=== PATIENT | male | born 1945 | race Caucasian/White ===

== ENCOUNTER 2017-08-27 22:23 | Observation (INO) | payer MEDICARE, OTHER ==
[~2017-08-27] VITALS: Ht 172.7 cm; Wt 84.7 kg
[2017-08-27 22:33] VITALS: BP 170/77; PULSE 71; RESP 16; TEMP 97.7; O2SAT 94
[2017-08-27] MEDS ORDERED: ATOR40TA16 PO (23:23)
[2017-08-27] MEDS ORDERED: FEXO180T PO (23:23)
[2017-08-27] MEDS ORDERED: GLUC15009 PO (23:23)
[2017-08-27] MEDS ORDERED: LUTE20CA PO (23:23)
[2017-08-27] MEDS ORDERED: TAMS0.4C4 PO (23:23)
[2017-08-27] MEDS ORDERED: LISI20TA3 PO (23:23)
[2017-08-27 23:24] VITALS: BP 149/85; PULSE 72; RESP 18; O2SAT 97
[2017-08-28] VITALS (8 sets, daily range): BP systolic 124–164; BP diastolic 68–85; PULSE 65–86; RESP 16–20; TEMP 95.7–97; O2SAT 94–97
--- NOTE | 2017-08-28 00:08 | PD ---
HPI Chief Complaint: Cardiac Complaint Time Seen by Provider: 00:04 Travel History International Travel<30 days: No Contact w/Intl Traveler<30days: No Traveled to known affect area: No History of Present Illness HPI 72-year-old male presents to the emergency department for complaint of intermittent chest pain over the past 2-3 days. Patient states chest discomfort is tightness 2/10 in intensity and last a few minutes in duration. Patient has noted some intermittent radiation towards the neck. Currently pain is 0/10 in intensity. Patient states that because he experienced the discomfort again this evening around 10:30 decided to come to the emergency room for evaluation. Patient has history of hypertension and dyslipidemia for which she is taking medications on a regular basis. Patient does not have diabetes tobacco use or premature onset of heart disease in his family. Patient is unable to identify exacerbating or alleviating factors. Patient has not had a stress test. Patient sees his primary care provider for management of his blood pressure and dyslipidemia every 6 months and has been told that these are well controlled. Patient denies any recent long distance travel protracted bedrest her surgical procedure. Patient does not describe any pleuritic chest pain shortness of breath or hemoptysis. Patient denies any associated shortness of breath sweats nausea vomiting referred [facility] Past Medical History Narrative Medical Hypertension dyslipidemia tonsillectomy appendectomy and back surgery; no tobacco use; nursing notes reviewed High Cholesterol: Yes Diminished Hearing: No Herniated Disk: Yes Hypertension: Yes Tetanus Vaccination: Unknown Influenza Vaccination: Yes ?: Not Past Surgical History Appendectomy: Yes Tonsillectomy: Yes Social History Alcohol Use: Yes (3-4 beers daily) Tobacco Use: No Substance Use: No Allergies-Medications (Allergen,Severity, Reaction): Coded Allergies: No Known Allergies (Verified Allergy, Unknown, 08/27/17) Reported Meds & Prescriptions Reported Meds & Active Scripts Active Reported Tamsulosin (Tamsulosin HCl) 0.4 Mg Cap 0.4 Mg PO HS Lisinopril-Hctz 20-25 Mg Tab 1 Tab PO DAILY Fexofenadine (Fexofenadine HCl) 180 Mg Tab 180 Mg PO DAILY Atorvastatin (Atorvastatin Calcium) 40 Mg Tab 40 Mg PO HS Glucosamine 1,500 Mg Tab 1,500 Mg PO DAILY Lutein 20 Mg Cap 20 Mg PO DAILY Review of Systems Except as stated in HPI: all other systems reviewed are Neg Physical Exam Narrative GENERAL: Well-developed well-nourished male in no acute distress no respiratory distress SKIN: Warm and dry. HEAD: Normocephalic. EYES: No scleral icterus. No injection or drainage. NECK: Supple, trachea midline. No JVD or lymphadenopathy. CARDIOVASCULAR: Regular rate and rhythm without murmurs, gallops, or rubs. RESPIRATORY: Breath sounds equal bilaterally. No accessory muscle use. GASTROINTESTINAL: Abdomen soft, non-tender, nondistended. MUSCULOSKELETAL: No cyanosis, or edema. Radial and dorsalis pedis pulses 2+ to palpation bilaterally BACK: Nontender without obvious deformity. No CVA tenderness. Data Data Last Documented VS Vital Signs Date Time Temp Pulse Resp B/P (MAP) Pulse Ox O2 Delivery O2 Flow Rate FiO2 08/28/17 00:37 77 18 141/75 (97) 97 Room Air 08/27/17 22:33 97.7 Orders Orders Electrocardiogram (08/28/17 00:04) Basic Metabolic Panel (Bmp) (08/28/17 00:04) Ckmb (Isoenzyme) Profile (08/28/17 00:04) Complete Blood Count With Diff (08/28/17 00:04) Magnesium (Mg) (08/28/17 00:04) Prothrombin Time / Inr (Pt) (08/28/17 00:04) Act Partial Throm Time (Ptt) (08/28/17 00:04) Troponin I (08/28/17 00:04) Chest, Single Ap (08/28/17 00:04) Ecg Monitoring (08/28/17 00:04) Bilateral Bp Monitoring (08/28/17 00:04) Iv Access Insert/Monitor (08/28/17 00:04) Oximetry (08/28/17 00:04) Oxygen Administration (08/28/17 00:04) Aspirin Chew (Aspirin Chew) (08/28/17 00:15) Sodium Chloride 0.9% Flush (Ns Flush) (08/28/17 00:15) CKMB (08/28/17 00:00) CKMB% (08/28/17 00:00) Admit Order (Ed Use Only) (08/28/17 ) 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.Q8H (08/28/17 02:12) Diet Heart Healthy (08/28/17 Breakfast) Activity Oob With Assistance (08/28/17 02:12) Notify Dr: Other (08/28/17 02:12) Activity Bed Rest With Brp (08/28/17 02:12) Vital Signs (Adult) Q4H (08/28/17 02:12) Cardiac Rhythm .As Directed (08/28/17 02:12) Notify Dr: Other .PRN (08/28/17 02:12) Notify DrElvis Parameters (08/28/17 02:12) Resp Oxygen Nasal Cannula (08/28/17 ) Ckmb (Isoenzyme) Profile (08/28/17 03:00) Ckmb (Isoenzyme) Profile (08/28/17 06:00) Troponin I (08/28/17 03:00) Troponin I (08/28/17 06:00) Electrocardiogram (08/28/17 03:00) Electrocardiogram (08/28/17 06:00) ^ Obtain (08/28/17 02:12) Sodium Chloride 0.9% Flush (Ns Flush) (08/28/17 02:15) Sodium Chloride 0.9% Flush (Ns Flush) (08/28/17 09:00) Acetaminophen (Tylenol) (08/28/17 02:15) Acetamin-Hydrocod 325-7.5 Mg ([place] 7.5 (08/28/17 02:15) Morphine Inj (Morphine Inj) (08/28/17 02:15) Ondansetron Inj (Zofran Inj) (08/28/17 02:15) Nitroglycerin Sl (Nitrostat Sl) (08/28/17 02:15) Aspirin (Aspirin) (08/28/17 09:00) 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.Q8H (08/28/17 02:12) Labs Laboratory Tests Test 08/28/17 00:00 White Blood Count 7.3 TH/MM3 Red Blood Count 4.89 MIL/MM3 Hemoglobin 14.8 GM/DL Hematocrit 44.5 % Mean Corpuscular Volume 91.1 FL Mean Corpuscular Hemoglobin 30.3 PG Mean Corpuscular Hemoglobin Concent 33.3 % Red Cell Distribution Width 12.5 % Platelet Count 179 TH/MM3 Mean Platelet Volume 9.9 FL Neutrophils (%) (Auto) 67.2 % Lymphocytes (%) (Auto) 17.3 % Monocytes (%) (Auto) 8.8 % Eosinophils (%) (Auto) 5.8 % Basophils (%) (Auto) 0.9 % Neutrophils # (Auto) 4.9 TH/MM3 Lymphocytes # (Auto) 1.3 TH/MM3 Monocytes # (Auto) 0.6 TH/MM3 Eosinophils # (Auto) 0.4 TH/MM3 Basophils # (Auto) 0.1 TH/MM3 CBC Comment DIFF FINAL Differential Comment Prothrombin Time 10.3 SEC Prothromb Time International Ratio 0.9 RATIO Activated Partial Thromboplast Time 25.2 SEC Blood Urea Nitrogen 15 MG/DL Creatinine 0.87 MG/DL Random Glucose 118 MG/DL Calcium Level 8.8 MG/DL Magnesium Level 2.0 MG/DL Sodium Level 137 MEQ/L Potassium Level 3.6 MEQ/L Chloride Level 101 MEQ/L Carbon Dioxide Level 27.3 MEQ/L Anion Gap 9 MEQ/L Estimat Glomerular Filtration Rate 86 ML/MIN Total Creatine Kinase 108 U/L Creatine Kinase MB 1.1 NG/ML Troponin I LESS THAN 0.02 NG/ML MDM Medical Decision Making Medical Screen Exam Complete: Yes Emergency Medical Condition: Yes Medical Record Reviewed: Yes Interpretation(s) EKG: Sinus rhythm no acute ST elevation or injury pattern change noted Troponin I less than 0.02, not elevated Last Impressions Chest X-Ray 08/28/17 0004 Signed Impressions: Service Date/Time: Monday, August 28, 2017 00:16 - CONCLUSION: No acute cardiopulmonary abnormality is identified. Jared Norton MD CBC & BMP Diagram 08/28/17 00:00 Calcium Level 8.8, Magnesium Level 2.0 Vital Signs Date Time Temp Pulse Resp B/P (MAP) Pulse Ox O2 Delivery O2 Flow Rate FiO2 08/28/17 00:37 77 18 141/75 (97) 97 Room Air 08/28/17 00:37 77 149/85 (106) 141/75 (97) 08/28/17 00:36 97 Room Air 08/28/17 00:36 97 Room Air 08/27/17 23:24 72 18 97 Room Air 08/27/17 23:24 72 18 149/85 (106) 97 Room Air 08/27/17 22:33 97.7 71 16 170/77 (108) 94 Differential Diagnosis Chest pain, atypical chest pain, ACS, LA, esophageal spasm, PE, aortic dissection, aneurysm, gastritis, peptic ulcer disease, biliary colic, cholecystitis, pancreatitis Narrative Course Patient placed on cardiac rehabilitation specialist with continuous pulse oximetry aspirin 162 mg administered by mouth imaging studies EKG and lab work ordered Lab values found to be in normal range chest x-ray no acute process Troponin I less than 0.02 Patient remains chest pain-free Patient's risk factor profile male, age 72, hypertension, dyslipidemia; no family history of premature onset heart disease noted tobaccoism no diabetes. Patient aware plan for admission for chest pain center protocol; patient's case discussed with on-call [facility] Physician Communication Physician Communication discussed with Dr Slater --obs [facility] protocol Diagnosis Primary Impression: Chest pain Admitting Information Admitting Physician Requests: Observation Lanie Soni MD Aug 28, 2017 00:08
[2017-08-28] MEDS ORDERED: ASPIRIN 81 MG CHEW TAB PO ONE (00:15)
[2017-08-28] MEDS ORDERED: SODIUM CHLORIDE 0.9% FLUSH 10 ML FLUSH IVF PRN (00:15)
[2017-08-28 00:26] LABS: AUTOMATED NEUTROPHIL # 4.9 TH/MM3 (1.8-7.7); BASOPHIL # 0.1 TH/MM3 (0-0.2); BASOPHIL % 0.9 % (0.0-2.0); EOSINOPHIL # 0.4 TH/MM3 (0-0.4); EOSINOPHIL % 5.8 % (0.0-4.0); HEMATOCRIT 44.5 % (39.0-51.0); LYMPH % 17.3 % (9.0-44.0); LYMPHOCYTE # 1.3 TH/MM3 (1.0-4.8); MEAN CELL VOLUME 91.1 FL (80.0-100.0); MEAN CORPUSCULAR HEMOGLOBIN 30.3 PG (27.0-34.0); MEAN CORPUSCULAR HGB CONC 33.3 % (32.0-36.0); MONO % 8.8 % (0.0-8.0); NEUT % 67.2 % (16.0-70.0); PLATELET COUNT 179 TH/MM3 (150-450); RED BLOOD COUNT 4.89 MIL/MM3 (4.50-5.90); RED CELL DISTRIBUTION WIDTH 12.5 % (11.6-17.2); WHITE BLOOD COUNT 7.3 TH/MM3 (4.0-11.0)
[2017-08-28 00:35] LABS: CHLORIDE 101 MEQ/L (98-107); POTASSIUM 3.6 MEQ/L (3.5-5.1); SODIUM (NA) 137 MEQ/L (136-145)
--- NOTE | 2017-08-28 00:37 | RADRPT ---
EXAM DATE/TIME: 08/28/2017 00:16 [facility] COMPARISON: No previous studies available for comparison. INDICATIONS : Chest pain. MEDICAL HISTORY : Hypertension. Hypercholesterolemia. SURGICAL HISTORY : None. ENCOUNTER: Initial ACUITY: 3 days PAIN SCORE: 2/10 LOCATION: Bilateral chest FINDINGS: Portable AP view of the chest demonstrates a normal-sized cardiac silhouette. No effusion, consolidat ion, or pneumothorax is visualized. The bones and soft tissues demonstrate no acute abnormality. Ther e is atelectasis versus scar at the left lung base. CONCLUSION: No acute cardiopulmonary abnormality is identified. Jared Norton MD on August 28, 2017 at 0:35 Board Certified Radiologist. This report was verified electronically.
[2017-08-28 00:38] LABS: ANION GAP 9 MEQ/L (5-15); APTT (PATIENT) 25.2 SEC (24.3-30.1); BICARBONATE 27.3 MEQ/L (21.0-32.0); BLOOD UREA NITROGEN 15 MG/DL (7-18); INTERNATIONAL NORMALIZED RATIO 0.9 RATIO; PROTHROMBIN TIME - PATIENT 10.3 SEC (9.8-11.6)
[2017-08-28 00:41] LABS: GLOMERULAR FILTRATION RATE 86 ML/MIN (>89); HEMO FLAGS DIFF FINAL
[2017-08-28 00:45] LABS: CREATINE KINASE 108 U/L (39-308)
[2017-08-28 00:57] LABS: CKMB 1.1 NG/ML (0.5-3.6)
[2017-08-28] MEDS ORDERED: NITROGLYCERIN 0.4 MG SL 25 TABS/BTL SL PRN (02:15)
[2017-08-28] MEDS ORDERED: MORPHINE SULFATE 4 MG/ML INJ IV PUSH PRN (02:15)
[2017-08-28] MEDS ORDERED: ACETAMINOPHEN/HYDROcodone 325 MG/7.5 MG TAB PO PRN (02:15)
[2017-08-28] MEDS ORDERED: ONDANSETRON HCL 4 MG/2 ML VIAL IV PUSH PRN (02:15)
[2017-08-28] MEDS ORDERED: SODIUM CHLORIDE 0.9% FLUSH 10 ML FLUSH IV FLUSH PRN (02:15)
[2017-08-28] MEDS ORDERED: ACETAMINOPHEN 500 MG CPLT PO PRN (02:15)
[2017-08-28] MEDS ORDERED: REGADENOSON INJ 0.4 MG/5 ML SYR IV ONE (02:15)
[2017-08-28 03:23] LABS: CREATINE KINASE 85 U/L (39-308)
[2017-08-28 08:48] LABS: CREATINE KINASE 81 U/L (39-308)
[2017-08-28] MEDS ORDERED: SODIUM CHLORIDE 0.9% FLUSH 10 ML FLUSH IV FLUSH SCH (09:00)
[2017-08-28] MEDS ORDERED: ASPIRIN 325 MG TAB PO SCH (09:00)
--- NOTE | 2017-08-28 09:27 | HHI.HP ---
HPI Service [facility] Primary Care Physician Bello Viera MD Admission Diagnosis Chest pain Diagnoses: (1) Chest pain Diagnosis: Principal Chief Complaint: Chest pain Travel History International Travel<30 Days: No Contact w/Intl Traveler <30 Da: No Traveled to Known Affected Are: No History of Present Illness Mr. Negron is a 72-year-old male patient with a known medical history of HTN and hyperlipidemia who presented to the ED with complaints of chest pain. Patient states that for the past 3 days he has noticed a midsternal chest tightness that would come for up to a minute then would resolve on its own, rated a 2/10 on pain scale. Patient cannot relate this tightness to any particular activity. Denies any radiation of pain or any associated symptoms such as nausea, vomiting, diaphoresis or shortness of breath. Patient denies ever having this chest tightness in the past. Denies any recent illness including fever, chills, headache, cough, shortness of breath, ab pain, n/v/d or dysuria. Does follow with Dr. Viera, PCP, in the outpatient setting. Denies any new changes to medications. Denies any increase in life stressors. Denies ever having a stress test in the past. Review of Systems Constitutional: DENIES: Fever, Chills Eyes: DENIES: Diplopia Ears, nose, mouth, throat: DENIES: Hearing loss Respiratory: DENIES: Cough, Wheezing, Sputum production, Shortness of breath Cardiovascular: COMPLAINS OF: Chest pain, DENIES: Palpitations Gastrointestinal: DENIES: Abdominal pain, Bloody stools, Constipation, Diarrhea , Nausea, Vomiting Genitourinary: DENIES: Urinary frequency, Urinary incontinence Musculoskeletal: DENIES: Joint pain Hematologic/lymphatic: DENIES: Bruising Psychiatric: DENIES: Anxiety Except as stated in HPI: all other systems reviewed are Neg Past Family Social History Past Medical History Hypertension Hyperlipidemia Past Surgical History Appendectomy Tonsillectomy Reported Medications Active Reported Tamsulosin (Tamsulosin HCl) 0.4 Mg Cap 0.4 Mg PO HS Lisinopril-Hctz 20-25 Mg Tab 1 Tab PO DAILY Fexofenadine (Fexofenadine HCl) 180 Mg Tab 180 Mg PO DAILY Atorvastatin (Atorvastatin Calcium) 40 Mg Tab 40 Mg PO HS Glucosamine 1,500 Mg Tab 1,500 Mg PO DAILY Lutein 20 Mg Cap 20 Mg PO DAILY Allergies: Coded Allergies: No Known Allergies (Verified Allergy, Unknown, 08/27/17) Active Ordered Medications Current Medications Medications (Trade) Dose Ordered Sig/Nery Route Start Time Stop Time Status Last Admin (NS Flush) 2 ml UNSCH PRN IV FLUSH 08/28/17 02:15 (NS Flush) 2 ml BID IV FLUSH 08/28/17 09:00 (Tylenol) 500 mg Q4H PRN PO 08/28/17 02:15 ([place] 7.5-325 Mg) 1 tab Q4H PRN PO 08/28/17 02:15 (Morphine Inj) 2 mg Q4H PRN IV PUSH 08/28/17 02:15 (Zofran Inj) 4 mg Q6H PRN IV PUSH 08/28/17 02:15 (Nitrostat Sl) 0.4 mg Q5M PRN SL 08/28/17 02:15 (Aspirin) 325 mg DAILY PO 08/28/17 09:00 (Lipitor) 40 mg HS PO 08/28/17 21:00 (Flomax) 0.4 mg HS PO 08/28/17 21:00 (Prinivil) 20 mg DAILY PO 08/28/17 10:00 (Hydrodiuril) 25 mg DAILY PO 08/28/17 10:00 Family History Paternal medical history significant for colon cancer. Maternal medical history significant for CHF and emphysema. Social History Denies any tobacco use. Denies any alcohol use. Denies any illicit drug use. Physical Exam Vital Signs Vital Signs Date Time Temp Pulse Resp B/P (MAP) Pulse Ox O2 Delivery O2 Flow Rate FiO2 08/28/17 08:00 97.0 65 20 150/74 (99) 94 08/28/17 03:48 95.7 65 20 164/81 (108) 94 08/28/17 03:46 70 16 97 08/28/17 03:35 86 08/28/17 03:13 67 16 140/68 (92) 95 Room Air 08/28/17 02:15 97 21 08/28/17 00:37 77 18 141/75 (97) 97 Room Air 08/28/17 00:37 77 149/85 (106) 141/75 (97) 08/28/17 00:36 97 Room Air 08/28/17 00:36 97 Room Air 08/27/17 23:24 72 18 97 Room Air 08/27/17 23:24 72 18 149/85 (106) 97 Room Air 08/27/17 22:33 97.7 71 16 170/77 (108) 94 Physical Exam GENERAL: This is a well-nourished, well-developed patient, lying in bed in no apparent distress. SKIN: No rashes, ecchymoses or lesions Warm and dry. HEENT: Atraumatic. Normocephalic. Pupils equal round and reactive. Extraocular motions intact. No scleral icterus. No injection or drainage. Nose without bleeding. Throat without erythema, tonsillar hypertrophy or exudate. Uvula midline. Airway patent. NECK: Trachea midline. No JVD. Supple. CARDIOVASCULAR: Regular rate and rhythm without murmurs, gallops, or rubs. RESPIRATORY: Clear to auscultation. Breath sounds equal bilaterally. No wheezes , rales, or rhonchi. GASTROINTESTINAL: Abdomen soft, non-tender, nondistended. No guarding. MUSCULOSKELETAL: Extremities without clubbing, cyanosis, or edema. No joint tenderness, effusion, or edema noted. NEUROLOGICAL: Awake and alert. Cranial nerves II through XII intact. Motor and sensory grossly within normal limits. Five out of 5 muscle strength in all muscle groups. Normal speech. Laboratory Laboratory Tests Test 08/28/17 00:00 08/28/17 02:45 08/28/17 06:39 White Blood Count 7.3 Red Blood Count 4.89 Hemoglobin 14.8 Hematocrit 44.5 Mean Corpuscular Volume 91.1 Mean Corpuscular Hemoglobin 30.3 Mean Corpuscular Hemoglobin Concent 33.3 Red Cell Distribution Width 12.5 Platelet Count 179 Mean Platelet Volume 9.9 Neutrophils (%) (Auto) 67.2 Lymphocytes (%) (Auto) 17.3 Monocytes (%) (Auto) 8.8 Eosinophils (%) (Auto) 5.8 Basophils (%) (Auto) 0.9 Neutrophils # (Auto) 4.9 Lymphocytes # (Auto) 1.3 Monocytes # (Auto) 0.6 Eosinophils # (Auto) 0.4 Basophils # (Auto) 0.1 CBC Comment DIFF FINAL Differential Comment Prothrombin Time 10.3 Prothromb Time International Ratio 0.9 Activated Partial Thromboplast Time 25.2 Blood Urea Nitrogen 15 Creatinine 0.87 Random Glucose 118 Calcium Level 8.8 Magnesium Level 2.0 Sodium Level 137 Potassium Level 3.6 Chloride Level 101 Carbon Dioxide Level 27.3 Anion Gap 9 Estimat Glomerular Filtration Rate 86 Total Creatine Kinase 108 85 81 Creatine Kinase MB 1.1 Troponin I LESS THAN 0.02 LESS THAN 0.02 LESS THAN 0.02 Result Diagram: 08/28/17 0000 08/28/17 0000 Imaging Last Impressions Chest X-Ray 08/28/17 0004 Signed Impressions: Service Date/Time: Monday, August 28, 2017 00:16 - CONCLUSION: No acute cardiopulmonary abnormality is identified. MD [place] Renee VTE Risk Assessment [place] VTE Risk Assessment: Mod/High Risk (score >= 2) Caprini Risk Assessment Model Point Value = 1 Point Value = 2 Point Value = 3 Point Value = 5 Age 41-60 Minor surgery BMI > 25 kg/m2 Swollen legs Varicose veins or History of unexplained or recurrent spontaneous Oral contraceptives or hormone replacement Sepsis (< 1 month) Serious lung disease, including pneumonia (< 1 month) Abnormal pulmonary function Acute myocardial infarction Congestive heart failure (< 1 month) History of inflammatory bowel disease Medical patient at bed rest Age 61-74 Arthroscopic surgery Major open surgery (> 45 min) Laparoscopic surgery (> 45 min) Malignancy Confined to bed (> 72 hours) Immobilizing plaster cast Central venous access Age >= 75 History of VTE Family history of VTE Factor V Leiden Prothrombin [id number] Lupus anticoagulant Anticardiolipin antibodies Elevated serum homocysteine Heparin-induced thrombocytopenia Other congenital or acquired thrombophilia Stroke (< 1 month) Elective arthroplasty Hip, pelvis, or leg fracture Acute spinal cord injury (< 1 month) Prophylaxis Regimen Total Risk Factor Score Risk Level Prophylaxis Regimen 0-1 Low Early ambulation 2 Moderate Order ONE of the following: *Sequential Compression Device (SCD) *Heparin 5000 units SQ BID 3-4 Higher Order ONE of the following medications: *Heparin 5000 units SQ TID *Enoxaparin/Lovenox 40 mg SQ daily (WT < 150 kg, CrCl > 30 mL/min) *Enoxaparin/Lovenox 30 mg SQ daily (WT < 150 kg, CrCl > 10-29 mL/min) *Enoxaparin/Lovenox 30 mg SQ BID (WT < 150 kg, CrCl > 30 mL/min) AND/OR *Sequential Compression Device (SCD) 5 or more Highest Order ONE of the following medications: *Heparin 5000 units SQ TID (Preferred with Epidurals) *Enoxaparin/Lovenox 40 mg SQ daily (WT < 150 kg, CrCl > 30 mL/min) *Enoxaparin/Lovenox 30 mg SQ daily (WT < 150 kg, CrCl > 10-29 mL/min) *Enoxaparin/Lovenox 30 mg SQ BID (WT < 150 kg, CrCl > 30 mL/min) AND *Sequential Compression Device (SCD) Assessment and Plan Problem List: (1) Chest pain ICD Code: R07.9 - Chest pain, unspecified Status: Acute Plan: Patient has been admitted to the chest pain center. Serial EKGs and serial troponins have been ordered for ACS ruling out purposes. Troponins are flat. EKG reviewed showing NSR with controlled HR, no presence of arrhythmias or ST changes to indicate ischemia. Patient will undergo a cardiac treadmill stress test to rule out any further ischemia. Further hospitalization and treatment plan will depend on treadmill results. Continue to follow. Supportive care. Supplemental O2 to keep sats >92%. Control pain. Morphine IV available. As well as [place] PO. At this time patient denies any further chest pain. Continue daily aspirin. NPO for now until after stress test performed. (2) Hypertension ICD Code: I10 - Essential (primary) hypertension Plan: Continue home Lisinopril and HCTZ. Monitor BP trends. (3) Hyperlipidemia ICD Code: E78.5 - Hyperlipidemia, unspecified Plan: Continue home statin. Assessment and Plan *Nuclear imaging results showing no ischemia. Patient and updated. Encouraged to follow up with PCP upon discharge. If chest pain reoccurs, patient has been encouraged to return to the ED. Patient is stable at this time and agreeable to the plan. Shaila Obrien Aug 28, 2017 09:27
[2017-08-28] MEDS ORDERED: NON-FORMULARY DRUG (Lisinopril-Hctz 1 TAB) PO SCH (09:30)
[2017-08-28] MEDS ORDERED: HYDROCHLOROTHIAZIDE 25 MG TAB PO SCH (10:00)
[2017-08-28] MEDS ORDERED: LISINOPRIL 20 MG TAB PO SCH (10:00)
--- NOTE | 2017-08-28 15:23 | RADRPT ---
EXAM DATE/TIME: 08/28/2017 13:56 [facility] COMPARISON: No previous studies available for comparison. INDICATIONS : Substernal chest pain radiating to the neck. Abnormal EKG. DOSE: 26.2 mCi Tc99m Myoview at stress. 8.7 mCi Tc99m Myoview at rest. 0.4 mg Lexiscan STRESS SYMPTOMS: Dyspnea and lightheadedness. EJECTION FRACTION: 61% MEDICAL HISTORY : Hypercholesterolemia. Hypertension. SURGICAL HISTORY : Tonsillectomy. Appendectomy. ENCOUNTER: Initial ACUITY: 3 days PAIN SCALE: 2/10 LOCATION: Substernal chest TECHNIQUE: The patient underwent pharmacologic stress with infusion of prescribed dose. Continuous ECG tracing was monitored during stress. Gated SPECT imaging was performed after stress and conventional SPECT i maging was performed at rest. The examination was performed on a SPECT/CT scanner, both attenuation and non-corrected datasets were reviewed. FINDINGS: DISTRIBUTION: The maximum perfused segment at stress is in the septal wall. PERFUSION STUDY: The pattern of perfusion at stress is within normal limits. GATED STUDY: There is intact wall motion and thickening without hypokinetic or dyskinetic segments. CONCLUSION: 1. No evidence for significant ischemia or infarction. 2. Intact wall motion with EF of 61%. RISK CATEGORY: Low (<1% Annual Mortality Rate) Fahad Adler MD on August 28, 2017 at 15:19 Board Certified Radiologist. This report was verified electronically.
[2017-08-28] MEDS ORDERED: ASPI81CH7 CHEW (15:39)
--- NOTE | 2017-08-28 15:42 | HHI.DCPOC ---
Discharge Care Plan Diagnosis: (1) Chest pain (2) Hyperlipidemia (3) Hypertension Goals to Promote Your Health * To prevent worsening of your condition and complications * To maintain your health at the optimal level Directions to Meet Your Goals Take your medications as prescribed Follow your dietary instruction Follow activity as directed Keep your appointments as scheduled Take your immunizations and boosters as scheduled If your symptoms worsen call your PCP, if no PCP go to Urgent Care Center or Emergency Room Smoking is Dangerous to Your Health. Avoid second hand smoke Call the 24-hour hour crisis hotline for domestic abuse at Shaila Obrien Aug 28, 2017 15:42
[2017-08-28] MEDS ORDERED: ATORVASTATIN 40 MG TAB PO SCH (21:00)
[2017-08-28] MEDS ORDERED: TAMSULOSIN HCL 0.4 MG CAP PO SCH (21:00)
--- NOTE | 2017-08-29 08:43 | TR ---
Date Performed: 08/28/2017 Time Performed: 14:24:23 DOCTOR: Ivan Ewing DRUG LIST: CLINICAL HISTORY: REASON FOR TEST: Chest pain REASON FOR ENDING: OBSERVATION: CONCLUSION: Lexiscan stress test was performed under standard four minute protocol. Radionuclide was injected one minute prior to ending the test. No electrocardiographic abormalities were present to suggest ischemia. Nuclear imaging and interpretation are pending. COMMENTS:
--- NOTE | 2017-08-29 08:43 | TR ---
Date Performed: 08/28/2017 Time Performed: 11:47:19 DOCTOR: Ivan Ewing DRUG LIST: CLINICAL HISTORY: REASON FOR TEST: Chest pain REASON FOR ENDING: OBSERVATION: CONCLUSION: Mino protocol performed test stopped 2/2 reaching target heart rate and leg fatigue . Good exercise tolerance. Recovery quick and unremarkabe. Good BP response. No reproduciable chest p ain or discomfort. [place] some dyspnea 2/2 activity.Maximum XK=065 Target HR Ivle[place]as=315.0% Maximum BP =150/80 Total Exercise Time=6:03 COMMENTS:
--- NOTE | 2017-08-29 23:04 | EKG ---
Date Performed: 08/28/2017 Time Performed: 05:37:34 PTAGE: 72 years EKG: Sinus rhythm LOW QRS VOLTAGE IN EXTREMITY LEADS SEPTAL MYOCARDIAL INFARCTION ABNORMAL ECG PREVIOUS TRACING : 08/28/2017 02.47 Compared to prior tracing no significant change DOCTOR: Miguel Ángel Pradhan Interpretating Date/Time 08/29/2017 23:02:33
--- NOTE | 2017-08-29 23:07 | EKG ---
Date Performed: 08/28/2017 Time Performed: 02:47:51 PTAGE: 72 years EKG: Sinus rhythm SEPTAL MYOCARDIAL INFARCTION ABNORMAL ECG PREVIOUS TRACING : 08/28/2017 00.13 Compared to prior tracing no significant change DOCTOR: Miguel Ángel Pradhan Interpretating Date/Time 08/29/2017 23:06:12
--- NOTE | 2017-08-29 23:08 | EKG ---
Date Performed: 08/28/2017 Time Performed: 00:13:06 PTAGE: 72 years EKG: Sinus rhythm LOW QRS VOLTAGE IN EXTREMITY LEADS SEPTAL MYOCARDIAL INFARCTION ABNORMAL ECG PREVIOUS TRACING : 08/27/2017 22.28 Compared to prior tracing no significant change DOCTOR: Miguel Ángel Pradhan Interpretating Date/Time 08/29/2017 23:08:30
--- NOTE | 2017-08-29 23:12 | EKG ---
Date Performed: 08/27/2017 Time Performed: 22:28:17 PTAGE: 72 years EKG: Sinus rhythm LOW QRS VOLTAGE IN EXTREMITY LEADS SEPTAL MYOCARDIAL INFARCTION ABNORMAL ECG INTERPRETATION BASED ON A DEFAULT AGE OF 40 YEARS NO PREVIOUS TRACING DOCTOR: Miguel Ángel Pradhan Interpretating Date/Time 08/29/2017 23:11:49
== END 2017-08-28 16:10 | disposition home or self-care (01) ==
LOC: PHED 22:23 → PHEDA 08-28 02:14 → PH3B 08-28 03:38
PROVIDERS: ADMIT Hospitalist; ATTEND Hospitalist
DX: R07.89 Other chest pain (principal); R07.2 Precordial pain; R94.31 Abnormal electrocardiogram [ECG] [EKG]; R06.00 Dyspnea, unspecified; R42 Dizziness and giddiness; I10 Essential (primary) hypertension; E78.00 Pure hypercholesterolemia, unspecified; Z79.899 Other long term (current) drug therapy
CPT/HCPCS: 71010; 78452; 80048; 82550; 82552; 83735; 84484; 85025; 85610; 85730; 93005; 93017; 99285; A9502; G0378; J2785

== ENCOUNTER 2017-09-20 05:41 | Emergency (ER) | payer MEDICARE, OTHER ==
[~2017-09-20] VITALS: Ht 172.7 cm; Wt 86.3 kg
[~2017-09-20 05:41] MED LIST: ASPI81CH7 CHEW; ATOR40TA16 PO; FEXO180T PO; GLUC15009 PO; LISI20TA3 PO; LUTE20CA PO; TAMS0.4C4 PO
[2017-09-20 05:47] VITALS: BP 158/79; PULSE 80; RESP 18; TEMP 98.4; O2SAT 95
[2017-09-20] MEDS ORDERED: LISI20TA3 PO (06:24)
[2017-09-20] MEDS ORDERED: MEDR4PAK PO (06:29)
--- NOTE | 2017-09-20 06:29 | PD ---
HPI Chief Complaint: Pain: Acute or Chronic Time Seen by Provider: 05:53 Travel History International Travel<30 days: No Contact w/Intl Traveler<30days: No Traveled to known affect area: No History of Present Illness HPI 72-year-old male presents to the emergency department for complaint of left- sided neck pain and upper back pain for 3 days. Patient states intermittent stabbing type pain. No referred left upper extremity pain no referred pain to the back and no headache. Patient denies known injury. Patient initially thought perhaps it slept wrong on a pillow. Patient has taken a couple doses of 400 mg of ibuprofen with intermittent relief. Last dose was approximately one hour ago. Patient takes no blood thinning agents. Patient denies any upper extremity or lower extremity numbness tingling or weakness saddle anesthesia or bladder or bowel dysfunction. Patient has right-handed. Patient has no prior history of neck injury. Patient was recently hospitalized for chest pain and headache normal stress test. Patient has history of hypertension and dyslipidemia has been taking his medications as prescribed. Patient denies any chest pain or shortness of breath. No recent febrile illness. Patient states pain increases with certain range of motion but is not consistently about what triggers the intermittent sharp stabbing pain. Presently pain and neck is 3/10 in intensity at worst 7/10 intensity. PFSH Past Medical History Narrative Medical Aspirin use hypertension dyslipidemia; no tobacco use of consciousness units. Hx Anticoagulant Therapy: Yes (ASA 81MG) Cancer: No Cardiovascular Problems: Yes High Cholesterol: Yes Chest Pain: Yes Diminished Hearing: No Endocrine: No Herniated Disk: Yes Hypertension: Yes Immune Disorder: No Musculoskeletal: No Neurologic: No Psychiatric: No Reproductive: No Respiratory: No Tetanus Vaccination: > 5 Years Influenza Vaccination: Yes ?: Not Past Surgical History Abdominal Surgery: Yes (Appendectomy) Appendectomy: Yes Tonsillectomy: Yes Other Surgery: Yes Social History Alcohol Use: Yes (3-4 beers daily) Tobacco Use: No Substance Use: No Allergies-Medications (Allergen,Severity, Reaction): Coded Allergies: No Known Allergies (Verified Allergy, Unknown, 09/20/17) Reported Meds & Prescriptions Reported Meds & Active Scripts Active Medrol Dosepak (Methylprednisolone) 4 Mg Dspk 4 Mg PO DIRECTED Per Pharmacist direction Aspirin Children's (Aspirin) 81 Mg Chew 81 Mg CHEW DAILY 30 Days Reported Lisinopril-Hctz 20-25 Mg Tab 2 Tab PO DAILY Tamsulosin (Tamsulosin HCl) 0.4 Mg Cap 0.4 Mg PO HS Fexofenadine (Fexofenadine HCl) 180 Mg Tab 180 Mg PO DAILY Atorvastatin (Atorvastatin Calcium) 40 Mg Tab 40 Mg PO HS Glucosamine 1,500 Mg Tab 1,500 Mg PO DAILY Lutein 20 Mg Cap 20 Mg PO DAILY Review of Systems Except as stated in HPI: all other systems reviewed are Neg General / Constitutional: No: Fever, Chills Eyes: No: Visual changes HENT: Positive: Neck Pain (intermittent stabbing left-sided), No: Headaches, Neck Stiffness Cardiovascular: No: Chest Pain or Discomfort, Palpitations, Diaphoresis, Syncope, Dyspnea on exertion, Edema Respiratory: No: Cough, Shortness of Breath Gastrointestinal: No: Nausea, Vomiting Genitourinary: No: Frequency, Flank Pain Musculoskeletal: Positive: Pain, No: Myalgias, Arthralgias, Weakness, Cramping , Edema Skin: No Rash Neurologic: No: Weakness, Dizziness, Syncope Psychiatric: No: Anxiety Hematologic/Lymphatic: No: Lymph Node Enlargement Physical Exam Narrative GENERAL: Well-developed well-nourished male in no acute distress no respiratory distress; GCS 15 SKIN: Warm and dry. HEAD: Atraumatic. Normocephalic. EYES: Pupils equal and round. No scleral icterus. No injection or drainage. ENT: No nasal bleeding or discharge. Mucous membranes pink and moist. NECK: Trachea midline. No JVD. Mild tenderness to palpation along the upper left trapezius musculature no point tender trigger point no induration no increased warmth no erythema no fluctuance. No midline tenderness and no bony step-off to palpation. CARDIOVASCULAR: Regular rate and rhythm. RESPIRATORY: No accessory muscle use. Clear to auscultation. Breath sounds equal bilaterally. GASTROINTESTINAL: Abdomen soft, non-tender, nondistended. Hepatic and splenic margins not palpable. MUSCULOSKELETAL: Extremities without clubbing, cyanosis, or edema. No obvious deformities. NEUROLOGICAL: Awake and alert. No obvious cranial nerve deficits. Motor grossly within normal limits. Five out of 5 muscle strength in the arms and legs. DTRs 2+ and equal bilaterally. Sensory exam intact. Normal speech. PSYCHIATRIC: Appropriate mood and affect; insight and judgment normal. Data Data Last Documented VS Vital Signs Date Time Temp Pulse Resp B/P (MAP) Pulse Ox O2 Delivery O2 Flow Rate FiO2 09/20/17 05:47 98.4 80 18 158/79 (105) 95 Orders Orders Spine, Cervical - Ltd (Ap&Lat) (09/20/17 ) Dexamethasone Inj (Decadron Inj) (09/20/17 06:30) Orphenadrine Inj (Norflex Inj) (09/20/17 06:30) MDM Medical Decision Making Medical Screen Exam Complete: Yes Emergency Medical Condition: Yes Medical Record Reviewed: Yes Interpretation(s) Last Impressions Cervical Spine X-Ray 09/20/17 0000 Signed Impressions: Service Date/Time: Wednesday, September 20, 2017 06:36 - CONCLUSION: Slight degenerative spondylosis. Kat Dennis MD Vital Signs Date Time Temp Pulse Resp B/P (MAP) Pulse Ox O2 Delivery O2 Flow Rate FiO2 09/20/17 05:47 98.4 80 18 158/79 (105) 95 Differential Diagnosis Musculoskeletal pain, myofascial spasm, cervical radiculopathy, trapezius strain , trigger point Narrative Course Well-developed well-nourished female in no acute distress no respiratory distress; cervical spine x-ray ordered- Limited and patient administered Norflex 60 mg IM and Decadron 10 mg IM; presents with myofascial cervical/ trapezius strain/spasm. patient clinically improved after meds and stable for discharged Diagnosis Primary Impression: Acute cervical myofascial strain Referrals: Primary Care Physician 2 days Patient Instructions: General Instructions Additional Instructions: Apply moist heat to affected area intermittently Complete course of steroid taper as prescribed While taking steroid taper did not take ibuprofen/Advil/Motrin Follow-up with primary care provider call office on Wednesday to schedule follow ointment Return to the emergency department for a concerns or change in condition Continue chronic medications as chronically prescribed Med/Other Pt SpecificInfo: Prescription(s) given Scripts Methylprednisolone Dosepak (Medrol Dosepak) 4 Mg Dspk 4 MG PO DIRECTED, #1 DSPK 0 Refills Per Pharmacist direction Prov: Lanie Soni MD 09/20/17 Disposition: DISCHARGE HOME Condition: Stable Lanie Soni MD Sep 20, 2017 06:29
[2017-09-20] MEDS ORDERED: ORPHENADRINE INJ 60 MG/2 ML AMP IM ONE (06:30)
[2017-09-20] MEDS ORDERED: DEXAMETHASONE SOD PHOS 20 MG/5 ML VIAL IM ONE (06:30)
--- NOTE | 2017-09-20 06:50 | RADRPT ---
EXAM DATE/TIME: 09/20/2017 06:36 [facility] COMPARISON: No previous studies available for comparison. INDICATIONS : Patient complains of neck pain. No known injury. Limited ROM due to pain in last 3 days. MEDICAL HISTORY : None. SURGICAL HISTORY : None. ENCOUNTER: Initial ACUITY: 3 days PAIN SCORE: 6/10 LOCATION: C-Spine FINDINGS: No appreciable subluxation or soft tissue swelling is seen. Slight degenerative spondylosis is seen at C3-4 and C5-6. CONCLUSION: Slight degenerative spondylosis. Kat Dennis MD on September 20, 2017 at 6:48 Board Certified Radiologist. This report was verified electronically.
[2017-09-20 07:12] VITALS: BP 141/73; PULSE 64; RESP 18; TEMP 97.7; O2SAT 96
== END 2017-09-20 07:22 | disposition home or self-care (01) ==
LOC: PHED 05:41
DX: S16.1XXA Strain of muscle, fascia and tendon at neck level, initial encounter (principal); E78.00 Pure hypercholesterolemia, unspecified; I10 Essential (primary) hypertension
CPT/HCPCS: 72040; 96372; 99284; J1100; J2360

== ENCOUNTER 2017-12-08 17:58 | Emergency (ER) | payer MEDICARE, OTHER ==
[~2017-12-08 17:58] MED LIST changes: +MEDR4PAK PO
== END 2017-12-08 18:11 | disposition left against medical advice (07) ==
LOC: NED 17:58
DX: R07.9 Chest pain, unspecified (principal); Z53.21 Procedure and treatment not carried out due to patient leaving prior to being seen by health care provider
CPT/HCPCS: 99281